=== PATIENT | male | born 1965 | race Caucasian/White ===

== ENCOUNTER 2017-08-03 12:51 | Day surgery (SDC) | payer OTHER ==
[2017-08-01 09:14] LABS: HEMATOCRIT 49.8 % (40.0-51.0); HEMOGLOBIN 17.4 g/dL (13.6-17.8)
[2017-08-01 09:31] LABS: CALCIUM, SERUM 9.4 MG/DL (8.5-10.4); CHLORIDE, SERUM 101 MMOL/L (96-112); CO2 (CARBON DIOXIDE) 27 MMOL/L (24-34); CREATININE 0.85 MG/DL (0.70-1.30); GFR AFRICAN AMERICAN 118 ML/MIN (>=60); GFR NON AFRICAN AMERICAN 102 ML/MIN (>=60); POTASSIUM, SERUM 3.6 MMOL/L (3.5-5.3); SODIUM, SERUM 137 MMOL/L (135-148)
[2017-08-01 09:32] LABS: BUN (BLOOD UREA NITROGEN) 4 MG/DL (6-23); GLUCOSE, SERUM 140 MG/DL (60-99)
[~2017-08-03] VITALS: Ht 177.8 cm; Wt 78.9 kg
--- NOTE | ~2017-08-03 | OP ---
Record Of Operation [facility] [address] [place]. [address] NAME: ESTEPHANIA PRAKASH : 67 STATUS : [facility]#: [id number] AGE: 51 ADM/REG DATE : 08/03/17 MR#: [id number] REPORT SERV DATE: 08/03/17 DICTATED BY: ROMAN BARRETT JR. DATE: 08/03/17 REPORT STATUS : Draft TRANSCRIBED BY: JESSICA DATE: 08/03/17 DATE OF PROCEDURE: 08/03/2017 MANAGER BUSINESS OPERATIONS: Blossom Beaulieu. PROCEDURE: Resection of subcutaneous tumor of the right side of the back (5.5 cm). PREOPERATIVE DIAGNOSIS: Subcutaneous tumor of the right side of the back. POSTOPERATIVE DIAGNOSIS: Subcutaneous tumor of the right side of the back. ANESTHESIA: General. INDICATIONS: The patient presented with enlarging soft tissue mass of the right side of the back. As this was symptomatic, excision was indicated for definitive diagnosis and treatment. FINDINGS: On exploration of the area, there was a lobulated fatty appearing mass located within the subcutaneous tissues, measuring 5.5 cm and resected completely and final diagnosis deferred to permanent section. DESCRIPTION OF PROCEDURE: With adequate general anesthesia, the patient was placed in prone position. The back area was prepped and draped sterilely. An obliquely oriented incision was made overlying the mass. 0.5% Marcaine was also used for local infiltration of anesthesia. Incision was made and deepened in the subcu tissues. The mass was encountered and dissected free of the surrounding tissues. It was submitted to Pathology for examination. Bleeding was controlled with electrocautery. Then, the wound was closed with subcutaneous 3-0 Vicryl and subcuticular Monocryl. A Chrissy drain was left and brought out laterally. The wound was dressed with an Aquacel dressing. He left the operating room in satisfactory condition. ESTIMATED BLOOD LOSS: 10 mL. MIGUELANGEL/JESSICA Roman Barrett Jr., M.D. / [id number] CC: Antonia Pham Jr., M.D.
[~2017-08-03 12:51] MED LIST: ADVIL PO; CYANO1000T PO; EFFEXOR XR150 MG PO; PRAVACHOL40 MG PO
== END 2017-08-03 17:57 | disposition home or self-care (01) ==
LOC: SDC 12:51
PROVIDERS: Specialist
PROC: 0JB70ZZ Excision of Back Subcutaneous Tissue and Fascia, Open Approach (ICD-10-PCS; principal; 2017-08-03 14:00)
DX: E65 Localized adiposity (principal); E78.5 Hyperlipidemia, unspecified; F41.9 Anxiety disorder, unspecified; F17.210 Nicotine dependence, cigarettes, uncomplicated; G47.00 Insomnia, unspecified; F32.9 Major depressive disorder, single episode, unspecified; Z83.3 Family history of diabetes mellitus; Z82.49 Family history of ischemic heart disease and other diseases of the circulatory system; Z79.899 Other long term (current) drug therapy; Z90.89 Acquired absence of other organs; Z98.890 Other specified postprocedural states
CPT/HCPCS: 80048; 85014; 85018; 88304; 93005; J0330; J0690; J2250; J2270; J3010